=== PATIENT | male | born 1985 | race Hispanic/Latino ===

== ENCOUNTER 2017-03-19 06:30 | Day surgery (SDC) | payer OTHER ==
[2017-03-18 13:47] VITALS: BMI 25.0
[~2017-03-19 06:30] MED LIST: Cyclopentolate 1% Opth Drop 2 ML BOT FS SCH; Fluorouracil 100 MG, Enoxaparin Sodium 25 MG, EPINEPHrine 0.3 MG in Ophthalmic Irrigati... IVPB SCH; Phenylephrine HCl 2.5% Ophth Soln 5 ML BOT FS SCH
[2017-03-19] MEDS ORDERED: Cyclopentolate 1% Opth Drop 2 ML BOT ONE (07:13)
[2017-03-19] MEDS ORDERED: Phenylephrine HCl 2.5% Ophth Soln 5 ML BOT ONE (07:14)
[2017-03-19] MEDS ORDERED: Ondansetron HCl/PF 4 MG/2 ML Vial ONE ×2 (08:26→08:32)
[2017-03-19] MEDS ORDERED: Midazolam HCl 2 mg/2 ml Vial ONE (08:26)
[2017-03-19] MEDS ORDERED: Fentanyl 100 MCG/2 ML VIAL ONE (08:26)
[2017-03-19] MEDS ORDERED: Diprivan 20 ML ONE (08:26)
[2017-03-19] MEDS ORDERED: Propofol 200 MG/20 ML VIAL ONE (08:32)
[2017-03-19] MEDS ORDERED: Lidocaine 2% PF 10 ML AMP (For Epidural Use) ONE (08:32)
[2017-03-19] MEDS ORDERED: Acetaminophen 500 MG TAB ONE (11:22)
--- NOTE | 2017-03-19 15:55 | OP ---
DATE OF SURGERY: 03/19/2017 PREOPERATIVE DIAGNOSIS: Rhegmatogenous retinal detachment and vitreous hemorrhage, right eye. POSTOPERATIVE DIAGNOSIS: Rhegmatogenous retinal detachment and vitreous hemorrhage, right eye. PROCEDURES: Pars plana vitrectomy and retinal detachment repair, right eye. SURGEON: Philipp Winston M.D. ANESTHESIA: General endotracheal anesthesia. COMPLICATIONS: None. PROCEDURE IN DETAIL: The patient was identified in the preoperative holding area. App[facility]ate [facility] consent for the planned surgical procedure on the right eye had been obtained. The patient was t ransported to the operative suite where appropriate cardiopulmonary monitoring was established. Gene ral endotracheal anesthesia was initiated. Local anesthesia was obtained using retrobulbar block. T he patient was prepped and draped in the usual sterile manner for ophthalmic surgery on the right eye . Lid speculum was placed in the right eye. A 25-gauge trocars were placed in conjunctiva and scler a supratemporally, inferotemporally, and supranasally. Infusion line was placed inferotemporally. L ight pipe and vitreous cutter were inserted into the eye. Core of vitrectomy was performed. Vitreou s hemorrhage was cleared from the vitreous cavity revealing a retinal detachment. A single tear was noted at the 12 o'clock position. This was marked with endocautery. Posterior drain retinotomy was created inferior to the nerve, and a complete air fluid exchange was performed with 10 minutes being allowed for fluid to drain posteriorly. A 360 laser was placed using endolaser delivery device. 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 A 28% sulfur hexafluoride gas was infused into the eye. Sclerotomies were sut ured closed with 7-0 Vicryl suture. Retrobulbar Kenalog and subconjunctival Ancef were placed. Anti biotic ointment was placed, and the eye was patched and shielded. Patient was advised to position ri ght or left side down. Call for pain not relieved by Tylenol, and follow up in the morning with Dr. Winston.
== END 2017-03-19 11:35 | disposition home or self-care (01) ==
LOC: SDC 06:30
PROVIDERS: ATTEND Ophthalmology Retina Specialist
PROC: 08T43ZZ Resection of Right Vitreous, Percutaneous Approach (ICD-10-PCS; principal; 2017-03-19)
DX: H33.011 Retinal detachment with single break, right eye (principal); H43.11 Vitreous hemorrhage, right eye; Z79.52 Long term (current) use of systemic steroids
CPT/HCPCS: J0171; J1650; J2001; J2250; J2405; J2704; J3010; J9190

== ENCOUNTER 2021-04-13 00:13 | Observation (INO) | payer OTHER, SELFPAY ==
[2021-04-13] MEDS ORDERED: hydrALAZINE 20 MG/ML VIAL SLOW IVP PRN (02:05)
[2021-04-13] MEDS ORDERED: Promethazine HCl 25 MG/ML VIAL IM PRN (02:05)
[2021-04-13] MEDS ORDERED: Ondansetron PF 4 MG/2 ML Vial IVP PRN (02:05)
[2021-04-13 02:41] LABS: #Eosinphils 0.1 thou/uL (0.0-0.7); #Lymphocytes 1.6 thou/uL (1.20-3.40); #Monocytes 0.9 thou/uL (0.11-0.59); #Neutrophils 12.1 thou/uL (1.40-6.50); %Basophils 0.2 % (0.0-1.0); %Eosinophils 0.5 % (0.0-10.0); %Lymphocytes 10.9 % (21.0-51.0); %Monocytes 5.8 % (0.0-10.0); %Neutrophils 82.6 % (42.0-75.0); Hemoglobin 15.8 g/dL (14.0-18.0); Mean Corpuscular HGB CONC 35.3 g/dL (32.0-36.0); Mean Corpuscular Hemoglobin 34.4 pg (27.0-31.0); Mean Corpuscular Volume 97.4 fL (78.0-98.0); Mean Platelet Volume 6.6 fL (7.4-10.4); Platelet Count 241 thou/uL (130-400); RBC Distribution Width 11.5 % (11.5-14.5); Red Blood Cell (RBC) Count 4.58 mill/uL (4.70-6.10); White Blood Cell (WBC) Count 14.6 thou/uL (4.8-10.8)
[2021-04-13 02:54] LABS: Amphetamine Not Detected (NotDetected); Barbiturates Screen Not Detected (NotDetected); Benzodiazepine Screen Not Detected (NotDetected); Cocaine Metabolite Screen Not Detected (NotDetected); Methadone Not Detected (NotDetected); Methamphetamine Not Detected (NotDetected); Opiate Screen Not Detected (NotDetected); Oxycodone Screen Not Detected (NotDetected); Phencyclidine (PCP) Not Detected (NotDetected); THC/Cannabinoid Screen Not Detected (NotDetected); Tricyclic Screen Not Detected (NotDetected)
[2021-04-13 02:58] LABS: PTT 23.5 sec (22.9-36.1); Prothrombin Time 13.6 sec (12.0-14.7)
[2021-04-13 03:00] LABS: ALT (SGPT) 23 U/L (8-55); AST (SGOT) 28 U/L (5-34); Acetaminophen Less than 6.0 mcg/mL (10.0-30.0); Albumin 3.6 g/dL (3.5-5.0); Alcohol 219 mg/dL (Less than 10); Alkaline Phosphatase 80 U/L (40-110); Anion Gap 12 mmol/L (10-20); BUN (Urea Nitrogen) 8 mg/dL (8.9-20.6); Bilirubin, Total 0.4 mg/dL (0.2-1.2); Calc. Creatinine Clearance 0 mL/min (70-130); Calcium 8.1 mg/dL (7.8-10.44); Carbon Dioxide 20 mmol/L (22-29); Chloride 109 mmol/L (98-107); Globulin 2.9 g/dL (2.4-3.5); Glucose 109 mg/dL (70-105); Potassium 3.4 mmol/L (3.5-5.1); Protein, Total 6.5 g/dL (6.0-8.3); Salicylate Less than 8.0 mg/dL (15.0-30.0); Sodium 138 mmol/L (136-145)
[2021-04-13] MEDS: Sodium Chloride 0.9% 1,000 ML IV SCH ×2 (04:59→16:41)
[2021-04-13] MEDS: Acetaminophen 325 MG TAB PO SCH ×2 (05:00→13:25)
[2021-04-13 05:02] VITALS: BMI 27.4
[2021-04-13] MEDS ORDERED: Oxazepam 10 MG CAP PO SCH (06:00)
[2021-04-13] MEDS ORDERED: Folic Acid 1 MG TAB PO SCH (09:00)
[2021-04-13] MEDS ORDERED: Senokot S 8.6-50 MG TAB PO SCH (09:00)
[2021-04-13] MEDS ORDERED: Polyethylene Glycol 3350 17 GM Packet PO SCH (09:00)
[2021-04-13] MEDS ORDERED: Thiamine 100 MG TAB PO SCH (09:00)
[2021-04-13] MEDS ORDERED: Iopamidol-370 76% 500 ML 1 ML ONE (10:19)
[2021-04-13 16:08] VITALS: BP 123/68; TEMP 97.8
== END 2021-04-13 17:19 | disposition home or self-care (01) ==
LOC: ERS 00:13 → NEURO 02:05 → INTOOBSV 02:05
PROVIDERS: ADMIT Surgery; ATTEND Surgery
DX: S06.6X9A Traumatic subarachnoid hemorrhage with loss of consciousness of unspecified duration, initial encounter (principal); S02.2XXA Fracture of nasal bones, initial encounter for closed fracture; S02.401A Maxillary fracture, unspecified side, initial encounter for closed fracture; R40.2413 Glasgow coma scale score 13-15, at hospital admission; F17.210 Nicotine dependence, cigarettes, uncomplicated; F10.129 Alcohol abuse with intoxication, unspecified; Y04.2XXA Assault by strike against or bumped into by another person, initial encounter; Y92.59 Other trade areas as the place of occurrence of the external cause; Y90.7 Blood alcohol level of 200-239 mg/100 ml
CPT/HCPCS: 36415; 70450; 71260; 72125; 74177; 80053; 80306; 80307; 85025; 85610; 85730; 93005; J7050; Q9967